=== PATIENT | male | born 1975 | race Caucasian/White ===

== ENCOUNTER 2016-07-22 17:35 | Emergency (ER) | payer OTHER ==
--- NOTE | 2016-07-22 18:11 | ED Physician Documentation ---
PD HPI ANIMAL BITE - Stated complaint Stated Complaint: BILATER HAND CAT BITES - Chief complaint Chief Complaint: Wound - History obtained from History obtained from: Patient - History of Present Illness Location of injury(ies): RUE, Left hand Details of the event: Cat, Bite, Scratch, Pet animal, Well appearing, Immunized Timing - onset: How many days ago (2) Timing - duration: Days (2) Timing - details: Abrupt onset, Still present Improved by: Rest, Immobilization Worsened by: Moving, Palpating Associated symptoms: Swelling, Discolored Contributing factors: No: Immunocompromised Similar symptoms before: Has not had sx before Recently seen: Not recently seen - Additional information Additional information: 40 y/o male with a cat bite to the left index finger with swelling and tenderness beginning yesterday. He has not had fever and he has a scratch to the right forearm with swelling and tenderness increasing to the mid forearm Review of Systems Constitutional: denies: Fever Eyes: denies: Decreased vision Ears: denies: Ear pain Nose: denies: Congestion Respiratory: denies: Cough GI: denies: Vomiting Skin: reports: Bite / sting. denies: Rash Musculoskeletal: reports: Extremity pain. denies: Neck pain, Back pain Neurologic: denies: Generalized weakness, Focal weakness, Numbness PD PAST MEDICAL HISTORY - Present Medications Home Medications: Ambulatory Orders Medication Instructions Recorded Confirmed Amox/Clav 875/125 [Augmentin] 1 each PO Q12H #14 tablet 07/22/16 - Allergies Allergies/Adverse Reactions: Allergies Allergy/AdvReac Type Severity Reaction Status Date / Time No Known Drug Allergies Allergy Verified 07/22/16 17:43 PD ED PE NORMAL - Vitals Vital signs reviewed: Yes (hypertensive ) - General General: Alert and oriented X 3, No acute distress, Well developed/nourished - HEENT HEENT: Atraumatic, PERRL - Respiratory Respiratory: No respiratory distress - Derm Derm: Normal color, Warm and dry, No rash - Extremities Extremities: No deformity, No edema, Other (There is swelling and tenderness to the left index finger and there is restriction of motion secondary to swelling and pain. He is able to move this at each joint. The distal n/v is intact. The swelling is to the MCP joint only and does not extend into the hand or forearm on the left. On the right there is an abrasion to the radial surface of the forearm at the distal forearm and there is swellign and tenderness to the mid forearm and not more proximal. ) - Neuro Neuro: Alert and oriented X 3, No motor deficit, No sensory deficit, Normal speech - Psych Psych: Normal mood, Normal affect Results - Vitals Vitals: Vital Signs - 24 hr 07/22/16 17:39 Temperature 37.1 C Heart Rate 52 L Respiratory 14 Rate Blood Pressure 130/82 H O2 Saturation 100 PD MEDICAL DECISION MAKING - ED course Complexity details: considered differential, d/w patient ED course: 40 y/o male with cat bite to the forearm and the finger with evidence of progressive infection. He is given an injection of rocephin and we will put him on some augmentin. Departure - Departure Disposition: 01 Home, Self Care Clinical Impression: Cat bite of finger Qualifiers: Encounter type: initial encounter Qualified Code(s): S61.259A - Open bite of unspecified finger without damage to nail, initial encounter; W55.01XA - Bitten by cat, initial encounter Cat bite of right forearm Qualifiers: Encounter type: initial encounter Qualified Code(s): S51.851A - Open bite of right forearm, initial encounter; W55.01XA - Bitten by cat, initial encounter Condition: Stable Instructions: ED Bite Cat Follow-Up: HERVE Flores [Provider Group] Prescriptions: Amox/Clav 875/125 [Augmentin] 1 each PO Q12H #14 tablet
[2016-07-22] MEDS ORDERED: cefTRIAXone 1 GM VIAL ONE (18:12)
[2016-07-22] MEDS ORDERED: LIDOCAINE 1% 2 ML VIAL ONE (18:12)
[2016-07-22] MEDS: cefTRIAXone 1 GM VIAL IM STA (18:19)
[2016-07-22 18:39] VITALS: BP 109/84
== END 2016-07-22 18:38 | disposition home or self-care (01) ==
LOC: ED 17:35
DX: S61.251A Open bite of left index finger without damage to nail, initial encounter (principal); S51.851A Open bite of right forearm, initial encounter; W55.01XA Bitten by cat, initial encounter
CPT/HCPCS: 96372; 99283